=== PATIENT | female | born 1970 | race Caucasian/White ===

== ENCOUNTER 2017-07-13 06:58 | Emergency (ER) | payer OTHER ==
[~2017-07-13] VITALS: Ht 167.6 cm; Wt 93.6 kg
[2017-07-13 07:08] VITALS: BP 182/84; PULSE 82; RESP 16; TEMP 98.4; O2SAT 98
[2017-07-13] MEDS ORDERED: PRIL20TA2 PO (07:22)
[2017-07-13] MEDS ORDERED: MONT10TA2 PO (07:22)
[2017-07-13] MEDS ORDERED: LEVO50TA4 PO (07:22)
--- NOTE | 2017-07-13 07:39 | PD ---
HPI Chief Complaint: Allergic/Adverse Reaction Time Seen by Provider: 07:25 Travel History International Travel<30 days: No Contact w/Intl Traveler<30days: No Traveled to known affect area: No History of Present Illness HPI 46-year-old male came to the emergency room with history of upper arm and shoulder along with itching of her cheeks and side of the neck and bilateral since she received a intrathecal shot of steroid 2 days ago. Patient spoke with the physician's office where the steroid injection was given. They asked her to monitor the symptoms and take Benadryl which she took on Tuesday night and last night. But since today she noticed that her tongue felt a little weird to her she decided to come to the emergency room. Patient was slightly hypertensive but also looked anxious. She said she has white coat syndrome. She did not appear to be drooling or any respiratory distress. Patient has received hydrocortisone shot in her knee ones but never had this reaction before. She also has been applying hydrocortisone cream on the skin area. The rash seems to be itchy she said. No history of fever or chills. [facility] Past Medical History Narrative Medical List of her past medical, surgical, social and family history is reviewed from the nursing note. Asthma: Yes Diminished Hearing: No GERD: Yes Thyroid Disease: Yes Tetanus Vaccination: Unknown Influenza Vaccination: No ?: Not Past Surgical History Cholecystectomy: Yes Eye Surgery: Yes Social History Alcohol Use: Yes (rare) Tobacco Use: No Substance Use: No Allergies-Medications (Allergen,Severity, Reaction): Coded Allergies: Penicillins (Verified Allergy, Severe, rash, 07/13/17) amoxicillin (Verified Allergy, Severe, rash, 07/13/17) clindamycin (Verified Allergy, Severe, swelling at IV site and above, 07/13) erythromycin base (Verified Allergy, Severe, rash/gi upset, 07/13/17) ofloxacin (Verified Adverse Reaction, Severe, vomiting, 07/13/17) sulfamethoxazole (Verified Adverse Reaction, Severe, vomiting, 07/13/17) trimethoprim (Verified Adverse Reaction, Severe, vomiting, 07/13/17) Comments List of her allergies from the nursing note. Reported Meds & Prescriptions Reported Meds & Active Scripts Active Vistaril (Hydroxyzine Pamoate) 25 Mg Cap 25 Mg PO TID PRN Reported Prilosec (Omeprazole Magnesium) 20 Mg Tab 40 Mg PO DAILY Levothyroxine (Levothyroxine Sodium) 50 Mcg Tab 50 Mcg PO DAILY Singulair (Montelukast Sodium) 10 Mg Tab 10 Mg PO DAILY Narrative Medication List of her home medications reviewed from the nursing note. Review of Systems Except as stated in HPI: all other systems reviewed are Neg Physical Exam Narrative GENERAL: Awake, alert, no obvious distress SKIN: Focused skin assessment warm/dry. Extremely minimal erythema of the left upper extremity near the shoulder and extensor surface of the upper arm and even lesser on the right side. HEAD: Atraumatic. Normocephalic. EYES: Pupils equal and round. No scleral icterus. No injection or drainage. ENT: No nasal bleeding or discharge. Mucous membranes pink and moist. Tongue is normal NECK: Trachea midline. No JVD. CARDIOVASCULAR: Regular rate and rhythm. No murmur appreciated. RESPIRATORY: No accessory muscle use. Clear to auscultation. Breath sounds equal bilaterally. GASTROINTESTINAL: Abdomen soft, non-tender, nondistended. Hepatic and splenic margins not palpable. MUSCULOSKELETAL: No obvious deformities. No clubbing. No cyanosis. No edema. NEUROLOGICAL: Awake and alert. No obvious cranial nerve deficits. Motor grossly within normal limits. Normal speech. PSYCHIATRIC: Appropriate mood and affect; insight and judgment normal. Data Data Last Documented VS [facility] Medical Decision Making Medical Screen Exam Complete: Yes Emergency Medical Condition: Yes Medical Record Reviewed: Yes Differential Diagnosis Anxiety, allergy, dermatitis Narrative Course 8 AM patient was given reassurance and a prescription for Atarax. I'll discharge her home. Procedures EKG Prior to Arrival: No Diagnosis Primary Impression: Skin irritation Referrals: Primary Care Physician 3 days Additional Instructions: Please return to the ER if the condition worsens or any other new concerns. Otherwise take the medication as per the prescription direction. You shouldn't be driving when you're on the medication since they will make you groggy. Med/Other Pt SpecificInfo: Prescription(s) given Scripts Hydroxyzine Pamoate (Vistaril) 25 Mg Cap 25 MG PO TID Y for itching, anxiety, #15 CAP 0 Refills Prov: Wendi Manuel MD 07/13/17 Disposition: 01 DISCHARGE HOME Condition: Stable Wendi Manuel MD Jul 13, 2017 07:39
[2017-07-13] MEDS ORDERED: VIST25CA PO (07:52)
== END 2017-07-13 08:14 | disposition home or self-care (01) ==
LOC: PHED 06:58
DX: R21 Rash and other nonspecific skin eruption (principal); J45.909 Unspecified asthma, uncomplicated; K21.9 Gastro-esophageal reflux disease without esophagitis; I10 Essential (primary) hypertension; X58.XXXA Exposure to other specified factors, initial encounter; Y99.0 Civilian activity done for income or pay
CPT/HCPCS: 99283